=== PATIENT | female | born 1940 | race Caucasian/White ===

== ENCOUNTER → 2018-04-19 | Outpatient (CLI) | payer MEDICARE, BC ==
--- NOTE | 2018-04-19 09:08 | Diagnostic Imaging Report ---
PROCEDURE:CHEST 2 VIEWS TECHNIQUE:PA and lateral chest INDICATION:Cough COMPARISON:Patients [facility], , CHEST 2 VIEWS, 10/18/2016, 15:14. FINDINGS: Mild symmetric hyperinflation. No pleural effusions. Upper limits of normal heart size, mediastinal contour, and pulmonary vasculature. Acutely intact skeleton. CONCLUSION: Mild hyperinflation suggesting air trapping from COPD Dictated by: Carter Hsu M.D. on 04/19/2018 at 9:12 Electronically approved by: Carter Hsu M.D. on 04/19/2018 at 9:12
== END ==
LOC: RAD 08:28
PROVIDERS: ATTEND Internal Medicine
DX: R05 Cough (principal); R60.9 Edema, unspecified
CPT/HCPCS: 71046; 93970

== ENCOUNTER → 2018-05-22 | Outpatient (CLI) | payer MEDICARE, BC ==
[2018-05-22 13:22] LABS: BASOPHILS % 0.5 % (0.0-1.0); EOSINOPHILS # (AUTO) 0.1 (0.0-0.4); EOSINOPHILS % 1.4 % (0.0-6.0); HEMATOCRIT 33.3 % (34.2-44.1); HEMOGLOBIN 11.1 g/dL (12.0-16.0); LYMPHOCYTES # (AUTO) 0.9 (1.0-3.2); LYMPHOCYTES % 25.5 % (18.0-39.1); MEAN CORPUSCULAR HEMOGLOBIN 30.2 pg (28-32); MEAN CORPUSCULAR HGB CONC 33.3 g/dL (31-35); MEAN CORPUSCULAR VOLUME 90.5 fL (81-99); MONOCYTES # (AUTO) 0.3 (0.2-0.8); MONOCYTES % 6.8 % (4.4-11.3); NEUTROPHILS # (AUTO) 2.4 (2.1-6.9); NEUTROPHILS % 65.3 % (38.7-80.0); PLATELET COUNT 190 x10e3/uL (140-360); RED BLOOD COUNT 3.68 x10e6/uL (3.6-5.1); RED CELL DISTRIBUTION WIDTH 14.6 % (11.7-14.4)
[2018-05-22 13:41] LABS: ALBUMIN 3.7 g/dL (3.5-5.0); ALBUMIN/GLOBULIN RATIO 1.2 (0.8-2.0); ANION GAP 11.8 mmol/L (8-16); CALCIUM 9.5 mg/dL (8.4-10.2); CREATININE, SERUM 1.26 mg/dL (0.57-1.11); POTASSIUM 3.8 mmol/L (3.5-5.1)
--- NOTE | 2018-05-22 14:15 | Diagnostic Imaging Report ---
PROCEDURE: Frontal and lateral views of the chest. COMPARISON: Patients [facility], , CHEST 2 VIEWS, 04/19/2018, 8:36. INDICATIONS: CHRONIC OBSTRUCTIVE PULMONARY DZ FINDINGS: Lines/tubes: None. Lungs: The lungs are mildly hyperinflated but grossly clear. There is no evidence of pneumonia or pulmonary edema. Pleura: There is no pleural effusion or pneumothorax. Heart and mediastinum: Stable borderline to mild enlargement of the cardiac silhouette. Pulmonary vasculature is normal. Bones: No acute bony abnormality. IMPRESSION: 1. No acute cardiopulmonary abnormalities. Abdias Miguel M.D. Dictated by: Abdias Miguel M.D. on 05/22/2018 at 14:21 Electronically approved by: Abdias Miguel M.D. on 05/22/2018 at 14:21
== END ==
LOC: RAD 12:07
PROVIDERS: ATTEND Family Medicine
DX: J44.9 Chronic obstructive pulmonary disease, unspecified (principal)
CPT/HCPCS: 36415; 71046; 80053; 83880; 85025; 93306

== ENCOUNTER 2020-04-18 19:06 | Emergency (ER) | payer MEDICARE, BC ==
[~2020-04-18] VITALS: Ht 152.4 cm; Wt 57.6 kg
--- NOTE | 2020-04-18 19:38 | Emergency Department Note ---
History of Present Illnes History of Present Illness Chief Complaint: Head/Face Trauma History of Present Illness This is a 79 year old female sustained a mechanical fall with injury to L forehead and L knee pain. Patient with CP prior to being triaged.. Past Medical/Family History Physician Review I have reviewed the patient's past medical and family history. Any updates have been documented here. Review of Systems Review of Systems Constitutional: Reports no symptoms EENTM: Reports no symptoms Cardiovascular: Reports chest pain Respiratory: Reports no symptoms Gastrointestinal: Reports no symptoms Genitourinary: Reports no symptoms Musculoskeletal: Reports joint pain Integumentary: Reports no symptoms Neurological: Reports headache Psychological: Reports no symptoms Endocrine: Reports no symptoms Hematological/Lymphatic: Reports no symptoms Physical Exam Related Data Allergies: Coded Allergies: codeine (Verified Allergy, Intermediate, HALLUCINATIONS, 04/18/20) Physical Exam CONSTITUTIONAL HENT EYES NECK PULMONARY CARDIOVASCULAR GASTROINTESTINAL GENITOURINARY SKIN Skin: Present other (circular hematoma 4 cm in diameter with overlying contusion Left frontal region) MUSCULOSKELETAL Musculoskeletal: Present tenderness (L knee) NEUROLOGICAL PSYCHOLOGICAL Results Imaging Imaging results reviewed: Yes Impressions [place] [address] Patient Name: DAVID KERNS MR #: [id number] : 1940 Age/Sex: 79/F Req #: [id number] Adm Physician: Ordered by: PETERSON MCMILLAN DO Report #: [id number] Location: ER Room/Bed: Procedure: [id number] CT/CT BRAIN WO Exam Date: 04/18/20 Exam Time: 2029 REPORT STATUS: Signed CT BRAIN WO HISTORY: Trauma COMPARISON: None. Technique: Noncontrast axial scans were obtained from skull base to the vertex. Coronal and sagittal reconstructions obtained from the axial data. One or more of the following dose reduction techniques were used: Automated exposure control, adjustment of the mA and/or kV according to patient size, and/or utilization of iterative reconstruction technique. DISCUSSION: Scalp/Skull: Left frontal scalp hematoma. No calvarial fracture. Brain sulci: Mildly prominent. Ventricles: Compensatory dilatation. Extra-axial spaces: No masses or fluid collections. Carotid siphon calcifications are present. Parenchyma: Mild bilateral deep white matter hypodensity is likely chronic microvascular ischemic change. There is an associated old small lacunar infarct in the left krishnamurthy radiata. Otherwise, no masses, hemorrhage, or large vascular territory acute infarct. Dural sinuses: No abnormal densities. Sellar/Suprasellar region: Intact. Skull base: Intact. Incidental findings: None. IMPRESSION: 1. No acute intracranial abnormalities. 2. Mild supratentorial chronic microvascular ischemic change. Mild generalized cerebral volume loss. Signed by: Dr. Marck Bocanegra M.D. on 04/18/2020 9:05 PM Dictated By: MARCK BOCANEGRA MD 04 Transcribed By: JERRY on 04/18/202104 COPY TO: PETERSON MCMILLAN DO~ [place] [address] Patient Name: DAVID KERNS MR #: [id number] : 1940 Age/Sex: 79/F Req #: [id number] Adm Physician: Ordered by: PETERSON MCMILLAN DO Report #: [id number] Location: ER Room/Bed: Procedure: [id number] DX/CHEST 2 VIEWS Exam Date: 04/18/20 Exam Time: 2024 REPORT STATUS: Signed EXAMINATION: CHEST 2 VIEWS INDICATION: Fall COMPARISON: Chest x-ray 05/22/2018 FINDINGS: TUBES and LINES: None. LUNGS: Normal lung volumes. Hyperinflated lungs. Mild central bronchial wall thickening. Lungs are clear. No consolidations. PLEURA: No pleural effusion or pneumothorax. HEART AND MEDIASTINUM: The cardiomediastinal silhouette is borderline enlarged. . Suspect mitral annular calcifications and/or coronary artery calcific atherosclerosis. BONES AND SOFT TISSUES: No acute osseous lesion. Soft tissues are unremarkable. UPPER ABDOMEN: No free air under the diaphragm. IMPRESSION: No acute thoracic radiographic abnormality. Findings suggestive of emphysema and bronchitis. Suspect mitral annular calcifications and/or coronary artery calcific atherosclerosis. Signed by: Marco Nichols DO on 04/18/2020 8:50 PM Dictated By: MARCO NICHOLS DO 49 Transcribed By: JERRY on 04/18/202049 COPY TO: PETERSON MCMILLAN DO~ [place] [address] Patient Name: DAVID KERNS MR #: [id number] : 1940 Age/Sex: 79/F Req #: [id number] Adm Physician: Ordered by: PETERSON MCMILLAN DO Report #: [id number] Location: ER Room/Bed: Procedure: [id number] DX/KNEE LEFT THREE VIEWS Exam Date: 04/18/20 Exam Time: 2024 REPORT STATUS: Signed X-ray left knee 3 views HISTORY: Pain. Fall COMPARISON: None available. FINDINGS: Bones: No acute displaced fracture. Osseous alignment is within normal limits. Joints: The joint spaces are well-maintained. Soft tissues: Prepatellar soft tissue swelling. IMPRESSION: No acute radiographic osseous abnormality. Prepatellar soft tissue swelling can be due to contusion and/or prepatellar traumatic bursitis.. Signed by: Marco Nichols DO on 04/18/2020 8:51 PM Dictated By: MARCO NICHOLS DO 50 Transcribed By: JERRY on 04/18/202050 COPY TO: PETERSON MCMILLAN DO~ Procedures 12 Lead ECG Interpretation ECG Interpretation : ECG: ECG 1 [employer]: Interpreted by ED physician Date: Apr 18, 2020 Time: 19:51 Prior ECG tracings: reviewed Rhythm: sinus rhythm Rate: normal BPM: 64 QRS axis: normal ST segments normal: Yes T waves normal: Yes Clinical Impression: non-specific ECG Assessment & Plan Medical Decision Making MDM 79 yof with mechanical fall with CP. EKG ordered to evaluate for cardiac pathology such as ACS. CT of brain, XR chest and knee to evaluate for traumatic injuries such as fractures or osseus pathology. Assessment & Plan Final Impression: (1) Cephalohematoma (2) Head injury consultation (3) Atypical chest pain (4) Knee pain, left (5) Elevated blood pressure reading (6) Traumatic bursitis PETERSON MCMILLAN DO Apr 18, 2020 19:38
--- NOTE | 2020-04-18 20:54 | Diagnostic Imaging Report ---
EXAMINATION: CHEST 2 VIEWS INDICATION: Fall COMPARISON: Chest x-ray 05/22/2018 FINDINGS: TUBES and LINES: None. LUNGS: Normal lung volumes. Hyperinflated lungs. Mild central bronchial wall thickening. Lungs are clear. No consolidations. PLEURA: No pleural effusion or pneumothorax. HEART AND MEDIASTINUM: The cardiomediastinal silhouette is borderline enlarged. . Suspect mitral annular calcifications and/or coronary artery calcific atherosclerosis. BONES AND SOFT TISSUES: No acute osseous lesion. Soft tissues are unremarkable. UPPER ABDOMEN: No free air under the diaphragm. IMPRESSION: No acute thoracic radiographic abnormality. Findings suggestive of emphysema and bronchitis. Suspect mitral annular calcifications and/or coronary artery calcific atherosclerosis. Signed by: Marco Nichols DO on 04/18/2020 8:50 PM
--- NOTE | 2020-04-18 20:55 | Diagnostic Imaging Report ---
X-ray left knee 3 views HISTORY: Pain. Fall COMPARISON: None available. FINDINGS: Bones: No acute displaced fracture. Osseous alignment is within normal limits. Joints: The joint spaces are well-maintained. Soft tissues: Prepatellar soft tissue swelling. IMPRESSION: No acute radiographic osseous abnormality. Prepatellar soft tissue swelling can be due to contusion and/or prepatellar traumatic bursitis.. Signed by: Marco Nichols DO on 04/18/2020 8:51 PM
--- NOTE | 2020-04-18 21:09 | Diagnostic Imaging Report ---
CT BRAIN WO HISTORY: Trauma COMPARISON: None. Technique: Noncontrast axial scans were obtained from skull base to the vertex. Coronal and sagittal reconstructions obtained from the axial data. One or more of the following dose reduction techniques were used: Automated exposure control, adjustment of the mA and/or kV according to patient size, and/or utilization of iterative reconstruction technique. DISCUSSION: Scalp/Skull: Left frontal scalp hematoma. No calvarial fracture. Brain sulci: Mildly prominent. Ventricles: Compensatory dilatation. Extra-axial spaces: No masses or fluid collections. Carotid siphon calcifications are present. Parenchyma: Mild bilateral deep white matter hypodensity is likely chronic microvascular ischemic change. There is an associated old small lacunar infarct in the left krishnamurthy radiata. Otherwise, no masses, hemorrhage, or large vascular territory acute infarct. Dural sinuses: No abnormal densities. Sellar/Suprasellar region: Intact. Skull base: Intact. Incidental findings: None. IMPRESSION: 1. No acute intracranial abnormalities. 2. Mild supratentorial chronic microvascular ischemic change. Mild generalized cerebral volume loss. Signed by: Dr. Marck Bocanegra M.D. on 04/18/2020 9:05 PM
[2020-04-18] MEDS ORDERED: CLONIDINE HCL 0.1 MG TAB PO STA (21:52)
[2020-04-18] MEDS ORDERED: HYDRALAZINE HCL 10 MG TAB PO STA (21:56)
[2020-04-18] MEDS ORDERED: CLONIDINE HCL 0.1 MG TAB ONE (22:02)
[2020-04-18] MEDS ORDERED: HYDRALAZINE HCL 10 MG TAB ONE (22:05)
[2020-04-18 22:49] VITALS: BP 198/90
== END 2020-04-18 22:51 | disposition home or self-care (01) ==
LOC: ER 19:06
DX: S00.83XA Contusion of other part of head, initial encounter (principal); R07.89 Other chest pain; M25.562 Pain in left knee; W18.30XA Fall on same level, unspecified, initial encounter; M71.562 Other bursitis, not elsewhere classified, left knee; R03.0 Elevated blood-pressure reading, without diagnosis of hypertension
CPT/HCPCS: 70450; 71046; 93005; 99284